=== PATIENT | female | born 1935 | race Hispanic/Latino ===

== ENCOUNTER 2021-01-14 08:13 | Day surgery (SDC) | payer MEDICARE ==
[2021-01-14 08:30] VITALS: BP 123/77
[2021-01-14] MEDS ORDERED: LACT10SO9 PO (10:33)
[2021-01-14] MEDS ORDERED: LEVO88CA4 PO (10:33)
[2021-01-14] MEDS ORDERED: OMEP-272 PO (10:33)
[2021-01-14] MEDS ORDERED: MULT-1203 PO (10:33)
[2021-01-14] MEDS ORDERED: FLUT16H NASAL (10:33)
[2021-01-14] MEDS ORDERED: CYAN1TAB17 PO (10:33)
[2021-01-14] MEDS ORDERED: TRIA15OI6 TP (10:33)
[2021-01-14] MEDS ORDERED: ACET-3194 PO (10:33)
[2021-01-14] MEDS ORDERED: FERS325 PO (10:33)
[2021-01-14] MEDS ORDERED: AMLO-258 PO (10:33)
[2021-01-14] MEDS ORDERED: MAGN400O17 PO (10:33)
[2021-01-14] MEDS ORDERED: THIA100T91 PO (10:33)
[2021-01-14] MEDS ORDERED: PROPOFOL 10 MG/ML 20ML VIAL IV ONE (11:15)
[2021-01-14] MEDS ORDERED: CEFAZOLIN SODIUM 1 GM VIAL ONE (11:29)
[2021-01-14] MEDS ORDERED: SODIUM CHLORIDE 0.9% 10 ML VIAL ONE (11:40)
[2021-01-14] MEDS ORDERED: PHENYLEPHRINE HCL 10 MG/ML 1ML VIAL IV ONE (11:40)
[2021-01-14 11:47] VITALS: BP 151/72
[2021-01-14 11:52] VITALS: BP 127/65
[2021-01-14 11:57] VITALS: BP 128/69
[2021-01-14 12:02] VITALS: BP 128/64
[2021-01-14] MEDS ORDERED: ACETAMINOPHEN 325 MG SUPPOSITORY RC ONE (12:22)
[2021-01-14 13:00] VITALS: BP 142/77
== END 2021-01-14 13:08 | disposition home or self-care (01) ==
LOC: ENDO 08:13
PROVIDERS: ATTEND Internal Medicine Gastroenterology
DX: K21.00 Gastro-esophageal reflux disease with esophagitis, without bleeding (principal); I12.9 Hypertensive chronic kidney disease with stage 1 through stage 4 chronic kidney disease, or unspecified chronic kidney disease; N18.9 Chronic kidney disease, unspecified; F41.9 Anxiety disorder, unspecified; E03.9 Hypothyroidism, unspecified; I25.10 Atherosclerotic heart disease of native coronary artery without angina pectoris; D64.9 Anemia, unspecified; M81.0 Age-related osteoporosis without current pathological fracture; G30.9 Alzheimer's disease, unspecified; F02.80 Dementia in other diseases classified elsewhere, unspecified severity, without behavioral disturbance, psychotic disturbance, mood disturbance, and anxiety; Z79.899 Other long term (current) drug therapy; Z79.890 Hormone replacement therapy; Z98.890 Other specified postprocedural states
CPT/HCPCS: 43246; A4215 ×2; A4216; A4221; A4222; A4223 ×2; A4606; A4620; A4657; A4663; J0690; J2370; J2704